=== PATIENT | female | born 1965 | race African-American/Black ===

== ENCOUNTER 2017-06-10 21:35 | Emergency (ER) | payer MEDICARE, OTHER ==
[~2017-06-10] VITALS: Ht 162.6 cm; Wt 71.2 kg
[2017-06-10 21:50] VITALS: BP 136/74
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
[2017-06-10] MEDS ORDERED: ACETAMINOPHEN 325 MG TABLET PO ONE (22:45)
[2017-06-10] MEDS ORDERED: FOLIC ACID 1 MG TABLET PO ONE (22:45)
[2017-06-10] MEDS ORDERED: ONDANSETRON ODT 4 MG TAB.RAPDIS PO ONE (22:45)
[2017-06-10] MEDS ORDERED: MULTIVITAMIN with MINERAL TABLET. PO ONE (22:45)
[2017-06-10] MEDS ORDERED: THIAMINE 100 MG TABLET. PO ONE (22:45)
== END 2017-06-11 00:43 | disposition home or self-care (01) ==
LOC: ER 21:35 → EEVIPCON 21:35 → ER 06-11 00:43
DX: F10.129 Alcohol abuse with intoxication, unspecified (principal); R51 Headache; E86.0 Dehydration; I10 Essential (primary) hypertension; Z86.73 Personal history of transient ischemic attack (TIA), and cerebral infarction without residual deficits; Z88.2 Allergy status to sulfonamides; Y04.8XXA Assault by other bodily force, initial encounter; Y93.89 Activity, other specified; Y92.89 Other specified places as the place of occurrence of the external cause; Y99.8 Other external cause status
CPT/HCPCS: 99284; Q0162